=== PATIENT | female | born 1970 | race African-American/Black ===

== ENCOUNTER 2020-02-24 12:54 | Emergency (ER) | payer BC ==
--- NOTE | 2020-02-24 13:35 | ER Document Report ---
ED General - General Chief Complaint: Other Stated Complaint: ABDOMINAL PAIN,BACK PAIN Time Seen by Provider: 02/24/20 13:20 Mode of Arrival: Ambulatory Information source: Patient TRAVEL OUTSIDE OF THE [place] IN LAST 30 DAYS: No - HPI Patient complains to provider of: Body feeling hot Notes: Patient is here with complaints of feeling like her body gets very hot all the time. She states that this started about 18 years ago after she had her child. She states that it seemed to go away but over the last few weeks she has felt very hot again. She denies any pain. She denies any numbness, tingling, weakness. No headache. No blurred or loss of vision. No chest pain or shortness of breath. No abdominal pain. No nausea, vomiting, diarrhea. No dysuria or hematuria. No rash. The sensation seems to be worse when she is upset or agitated. She states that she was at work today and felt very hot all over so she wanted to come in to be evaluated. No cough, no fever. She denies any other specific complaints at this time. - Related Data Allergies/Adverse Reactions: codeine [Codeine] Adverse Reaction (Verified 12/30/14 14:35) Pruritis Home Medications: adderal/ambien/serequil Past Medical History - Social History Smoking Status: Never Smoker Chew tobacco use (# tins/day): No Frequency of alcohol use: Occasional Drug Abuse: None Family History: Reviewed & Not Pertinent Past Surgical History: Reports: Hx Orthopedic Surgery Review of Systems - Review of Systems -: Yes All other systems reviewed and negative Physical Exam - Vital signs Vitals: Temp Pulse Resp BP Pulse Ox 97.7 F 92 16 116/80 100 02/24/20 13:01 02/24/20 13:01 02/24/20 13:01 02/24/20 13:01 02/24/20 13:01 - Notes Notes: GENERAL: alert, cooperative, nontoxic, no distress. HEAD: normocephalic, atraumatic EYES: conjunctiva pink without discharge, no external redness or swelling. Pupi ls are equal, round, reactive to light. Extraocular muscles intact bilaterally. EARS: no external swelling, no external redness NOSE: atraumatic, no external swelling MOUTH/THROAT: mucous membranes moist and pink, posterior pharynx without erythema, swelling, exudate. No trismus or drooling. NECK: soft, supple, full range of motion, no meningismus. CHEST: no distress, lungs clear and equal throughout. No wheezing, rales, rhonchi. CARDIAC: regular rate and rhythm, no murmur BACK: full range of motion EXTREMITIES: full range of motion of all extremities. No redness, no swelling. NEURO: alert and oriented x 3, cranial nerves II through XII are grossly intact. Upper and lower extremities are equal throughout. Normal sensation. No focal deficits, full range of motion of all extremities. normal finger to nose. PYSCH: appropriate mood, affect. Patient is cooperative. SKIN: pink, warm, dry, no rash. Course - Re-evaluation Re-evalutation: 02/24/20 16:17 Patient resting comfortably this time. Gone over the results with the patient. Questions have been answered. Will discharge home. Patient here with some nonspecific feelings of feeling hot all over occasionally. She states this is intermittently been going on for the last 18 years. She has a nonfocal neurological exam. She denies numbness, tingling, weakness. She denies any chronic medical issues. She has a benign exam. Vital signs are stable. Lab work is all unremarkable for any significant abnormalities.Patient has a white blood cell count of 3.9, hemoglobin of 11.2. This is stable when compared to prior levels. Chemistries are all unremarkable with a normal TSH and free T4. Urinalysis shows no signs of infection. Cannot exactly explain the reason the patient intermittently feels hot, but I am not finding any serious/emergent cause for her symptoms. She is afebrile. At this point I believe the patient can be discharged home and follow-up with her primary care doctor since this is been going on for the last 18 years. She can follow-up sooner she has any worsening symptoms, high fever, persistent vomiting, chest pain or shortness of breath, numbness, tingling, weakness, any further concerns. The patient's emergency department workup and current diagnosis were explained to the patient and or family. Follow-up instructions were provided. Medications if prescribed were discussed. Instructions for when to return to the emergency department including specific worrisome symptoms were discussed with the patient and/or family. - Vital Signs Vital signs: Temp Pulse Resp BP Pulse Ox 97.7 F 92 16 116/80 100 02/24/20 13:01 02/24/20 13:01 02/24/20 13:01 02/24/20 13:01 02/24/20 13:01 - Laboratory Results Result Diagrams: 02/24/20 14:02 02/24/20 14:02 Laboratory Results Interpreted: 02/24/20 02/24/20 14:02 14:02 WBC 3.9 L Hgb 11.2 L Hct 33.1 L Lymph % (Auto) 51.8 H Absolute Neuts (auto) 1.5 L Seg Neutrophils % 40.0 L Urine Protein 30 H Urine Urobilinogen 2.0 H Critical Laboratory Results Reviewed: No Critical Results - Radiology Results Critical Radiology Results Reviewed: No Critical Results Discharge - Discharge Clinical Impression: Sensation of feeling hot Condition: Stable Disposition: HOME, SELF-CARE Instructions: Numbness or Paresthesia ([facility]) Additional Instructions: Follow-up with your doctor at the next available appointment. Follow-up sooner for worsening symptoms, chest pain or shortness of breath, high fever, persistent vomiting, numbness, tingling, weakness, any further concerns. Referrals: [facility] [Provider Group] - Follow up as needed
[2020-02-24 14:37] LABS: ABSOLUTE EOSINOPHILS # (AUTO) 0.1 10^3/uL (0.0-0.6); ABSOLUTE MONOCYTES (AUTO) 0.2 10^3/uL (0.1-1.4); ABSOLUTE NEUT (AUTO) 1.5 10^3/uL (1.7-8.2); APPEARANCE,URINE SLIGHTLY-CLOUDY; BASOPHILS % (AUTO) 0.6 % (0-2); BILIRUBIN,URINE NEGATIVE (NEGATIVE); COLOR,URINE YELLOW; EOSINOPHILS % (AUTO) 1.5 % (0-6); GLUCOSE, URINE NEGATIVE (NEGATIVE); HEMATOCRIT 33.1 % (36.0-47.0); HEMOGLOBIN 11.2 g/dL (12.0-15.5); KETONES,URINE NEGATIVE (NEGATIVE); LEUKOCYTE ESTERASE,URINE NEGATIVE (NEGATIVE); LYMPHOCYTES % (AUTO) 51.8 % (13-45); MEAN CORPUSCULAR HEMOGLOBIN 29.3 pg (27.0-33.4); MEAN CORPUSCULAR VOLUME 86 fl (80-97); MONOCYTES % (AUTO) 6.1 % (3-13); NITRITE,URINE NEGATIVE (NEGATIVE); PLATELET COUNT 262 10^3/uL (150-450); PROTEIN,URINE 30 mg/dL (NEGATIVE); RED BLOOD COUNT 3.84 10^6/uL (3.72-5.28); RED CELL DISTRIBUTION WIDTH 13.5 % (11.5-14.0); TOTAL CELLS COUNTED % (AUTO) 100 %; URINE SPECIFIC GRAVITY 1.029; WHITE BLOOD COUNT 3.9 10^3/uL (4.0-10.5)
[2020-02-24 14:53] LABS: ALBUMIN 4.4 g/dL (3.5-5.0); ALKALINE PHOSPHATASE 55 U/L (38-126); ANION GAP 7 (5-19); ASPARTATE AMINO TRANSFERASE 23 U/L (14-36); BILIRUBIN,DIRECT 0.2 mg/dL (0.0-0.4); BILIRUBIN,TOTAL 0.5 mg/dL (0.2-1.3); BLOOD UREA NITROGEN 8 mg/dL (7-20); CALCIUM 9.7 mg/dL (8.4-10.2); CARBON DIOXIDE 29 mmol/L (22-30); CHLORIDE 102 mmol/L (98-107); GLUCOSE 105 mg/dL (75-110); POTASSIUM 4.1 mmol/L (3.6-5.0); TOTAL PROTEIN 7.7 g/dL (6.3-8.2)
[2020-02-24 15:09] LABS: FREE T4 (FREE THYROXINE) 0.83 ng/dL (0.78-2.19)
[2020-02-24 15:23] LABS: THYROID STIMULATING HORMONE 0.68 uIU/mL (0.47-4.68)
[2020-02-24 16:43] VITALS: BP 112/61
== END 2020-02-24 16:37 | disposition home or self-care (01) ==
LOC: ER 12:54
DX: R10.9 Unspecified abdominal pain (principal); M54.9 Dorsalgia, unspecified; Z88.6 Allergy status to analgesic agent
CPT/HCPCS: 36415; 80053; 81001; 83735; 84439; 84443; 85025; 99283